=== PATIENT | female | born 1990 | race Caucasian/White ===

== ENCOUNTER 2018-07-22 11:41 | Emergency (ER) | payer BC ==
[~2018-07-22] VITALS: Ht 162.6 cm; Wt 49.9 kg
[~2018-07-22 11:41] MED LIST: CEPHALEXIN500 MG PO
--- NOTE | 2018-07-23 16:52 | EKG ---
[facility] [address] [place], [place] [address] Signed Normal sinus rhythm Rightward axis Borderline ECG No previous ECGs available Confirmed by NEW GIANG DO ([id number]) on 07/23/2018 4:51:51 PM Electronically Signed By: NEW GIANG DO 07/23/181651 PATIENT NAME: FLOYD SKINNER Electrocardiogram DATE OF : 89 PHYSICIAN: NEW GIANG DO REPORT #: [id number] REPORT IS CONFIDENTIAL AND NOT TO BE RELEASED WITHOUT AUTHORIZATION
== END 2018-07-22 15:12 | disposition home or self-care (01) ==
LOC: ED 11:41
DX: T40.2X1A Poisoning by other opioids, accidental (unintentional), initial encounter (principal); R09.2 Respiratory arrest
CPT/HCPCS: 70450; 71045; 80053; 81001; 83605; 84484; 84703; 85025; 93005; 93010; 96361; 99284-25; G0480; J2310; J2405; J7030; J7040